=== PATIENT | female | born 1985 | race Caucasian/White ===

== ENCOUNTER 2016-12-30 18:07 | Emergency (ER) | payer MEDICAID, OTHER ==
[2016-12-30 18:26] VITALS: BP 104/63; PULSE 93; RESP 20; TEMP 98.4; O2SAT 100
[2016-12-30] MEDS ORDERED: Sodium Chloride 0.9% 1,000 ML IV STA (20:25)
[2016-12-30 21:09] LABS: BASO % 0.6 % (0.0-2.0); EOS # 0.2 K/uL (0.0-0.7); EOS % 2.4 % (0.0-4.0); HEMATOCRIT 37.8 % (34.0-47.0); LYMPH # 3.9 K/uL (1.0-4.3); LYMPH % 43.5 % (20.0-40.0); MEAN CELL VOLUME 94.2 fl (81.0-99.0); MEAN PLATELET VOLUME 9.1 fl (7.2-11.7); MONO # 0.6 K/uL (0.0-0.8); MONO % 6.3 % (0.0-10.0); NEUT # 4.2 K/uL (1.8-7.0); NEUT % 47.2 % (50.0-75.0); NRBC % 0.1 % (0.0-0.0); RED CELL DISTRIBUTION WIDTH 13.3 % (11.5-14.5)
[2016-12-30 21:28] LABS: ALB/GLOB RATIO 1.4 (1.0-2.1); ALKALINE PHOSPHATASE 60 U/L (38-126); ALT/SGPT 59 U/L (9-52); AST/SGOT 108 U/L (14-36); BILIRUBIN,TOTAL 2.1 mg/dl (0.2-1.3); BLOOD UREA NITROGEN 18 mg/dl (7-17); CALCIUM 9.2 mg/dL (8.4-10.2); CARBON DIOXIDE 24 mmol/L (22-30); CHLORIDE 104 mmol/L (98-107); GFR AFRICAN-AMERICAN > 60; GLUCOSE,RANDOM 95 mg/dL (65-105); LIPASE 172 U/L (23-300); SODIUM 136 mmol/l (132-148); TOTAL PROTEIN 8.7 G/DL (6.3-8.2)
--- NOTE | 2016-12-30 21:29 | ED PDOC ---
HPI: Abdomen Time Seen by Provider: 12/30/16 20:19 Chief Complaint (Nursing): Abdominal Pain Chief Complaint (Provider): Abdominal Pain History Per: Patient History/Exam Limitations: no limitations Onset/Duration Of Symptoms: Days (3 days) Outside of [place] travel?: No Current Symptoms Are (Timing): Still Present Severity: Moderate Location Of Pain/Discomfort: RLQ Associated Symptoms: denies: Fever, Nausea, Urinary Symptoms Additional Complaint(s): Margo Vicente is a 31 year old female, with no pertinent past medical history, who presents to the emergency department for the evaluation of abdominal pain, localized to the right lower quadrant, that the patient has been experiencing for the past 3 days. Patient was recently seen by Gaurav Tucker MD, who performed an ultrasound that came back inconclusive, and referred her to the emergency room for a CAT scan of her abdomen to rule out appendicitis. Denies a fever, nausea, or urinary symptoms. PMD: Gaurav Tucker Past Medical History Reviewed: Historical Data, Nursing Documentation, Vital Signs Vital Signs: Last Vital Signs Temp 98.4 F 12/30/16 18:23 Pulse 93 H 12/30/16 18:23 Resp 20 12/30/16 18:23 BP 104/63 12/30/16 18:23 Pulse Ox 100 12/30/16 21:33 - Medical History PMH: No Chronic Diseases Denies: Diabetes, HTN - Surgical History Surgical History: Tonsillectomy Other surgeries: Orthopedic R Hand Surgery - Family History Family History: States: Diabetes (Father) - Social History Current smoker - smoking cessation education provided: No Ex-Smoker (has not smoked in the last 12 months): No Alcohol: None Drugs: Cannabis - Home Medications Home Medications: Ambulatory Orders Medication Instructions Recorded Azithromycin [Zithromax] 250 mg PO DAILY #6 cap 04/13/14 Nitrofurantoin Macrocrystals 100 mg PO BID #10 cap 04/15/14 [Macrobid] Acetaminophen with Codeine 1 tab PO Q8H #10 tab 04/20/14 [Tylenol with Codeine No. 3 300 mg-30 mg] Sulfamethoxazole/Trimethopri 1 tab PO BID #14 tab 04/20/14 [Bactrim Ds 800 mg-160 mg] Tamsulosin [Flomax] 0.4 mg PO DAILY #0 cap 04/20/14 Dicyclomine [Bentyl] 10 mg PO QID PRN #10 cap 05/19/14 Metoclopramide Hydrochloride 10 mg PO Q4 PRN #10 tab 05/19/14 [Reglan] Albuterol HFA [Ventolin HFA 90 2 puff IH Q4H #1 puff 01/11/16 mcg/actuation (8 g)] Methylprednisolone [Medrol Dose 4 mg PO DAILY #21 tab 01/11/16 Pack (21 tabs)] Albuterol HFA [Ventolin HFA 90 2 puff IH Q4H #1 puff 03/15/16 mcg/actuation (8 g)] Azithromycin [Zithromax] 250 mg PO DAILY #6 tablet 03/15/16 Cyclobenzaprine [Cyclobenzaprine 10 mg PO BID #15 tab 12/30/16 HCl] Ibuprofen [Motrin Tab] 600 mg PO Q6 #30 tab 12/30/16 - Allergies Allergies/Adverse Reactions: Allergies Allergy/AdvReac Type Severity Reaction Status Date / Time No Known Allergies Allergy Verified 03/15/16 09:59 Review of Systems ROS Statement: Except As Marked, All Systems Reviewed And Found Negative Constitutional: Negative for: Fever Gastrointestinal: Positive for: Abdominal Pain (RLQ). Negative for: Nausea Genitourinary Female: Negative for: Dysuria, Frequency, Hematuria, Other ( urinary retention) Physical Exam - Reviewed Nursing Documentation Reviewed: Yes Vital Signs Reviewed: Yes - Physical Exam Appears: Positive for: Non-toxic, No Acute Distress Head Exam: Positive for: ATRAUMATIC, NORMOCEPHALIC Skin: Positive for: Normal Color, Warm Cardiovascular/Chest: Positive for: Regular Rate, Rhythm. Negative for: Murmur Respiratory: Positive for: Normal Breath Sounds. Negative for: Respiratory Distress Gastrointestinal/Abdominal: Positive for: Normal Exam, Bowel Sounds (nl), Soft, Tenderness (RLQ). Negative for: Mass, Distended, Guarding, Rebound Back: Positive for: Normal Inspection. Negative for: L CVA Tenderness, R CVA Tenderness Neurologic/Psych: Positive for: Alert, Oriented - Laboratory Results Result Diagrams: 12/30/16 21:00 12/30/16 21:00 - ECG O2 Sat by Pulse Oximetry: 100 (RA) Pulse Ox Interpretation: Normal Medical Decision Making Medical Decision Makin:19 Initial Impression: Possible appendicitis Initial Plan: * CT Abdomen & Pelvis w/ IV Contrast * Type and Screen * Complete Blood Count * Comprehensive Metabolic Panel * Lipase * Urine * Urinalysis * Morphine 2 mg IVP * Sodium Chloride 0.9% 1,000 ml IV at 500 mls/hr * Blood Culture * Urine Culture * Reevaluation 11PM CT: IMPRESSION: 17 mm involuting cyst within the left ovary. Retrocecal appendix is of normal caliber but with surrounding inflammatory change. Findings within the right iliacus muscle possibly secondary to contusion, an interval change from previous examination in 2013. Spoke with patient, states that she in fact had trauma to her abdomen last Monday when pain started, also states she fell down the stairs a few months ago and had trauma to the same area at that time and has been exerting herself at the gym and and at work. Told patient to try NSAIDs/muscle relaxants and to relax abdominal muscles. Told pt. to f/u w/ Dr. Tucker next week or return to ED for worsening pain, fevers, chills, or any other concerning symptoms. Scribe Attestation: Documented by Jonathan Corley, acting as a scribe for Martin Griffith MD. Provider Scribe Attestation: All medical record entries made by the Scribe were at my direction and personally dictated by me. I have reviewed the chart and agree that the record accurately reflects my personal performance of the history, physical exam, medical decision making, and the department course for this patient. I have also personally directed, reviewed, and agree with the discharge instructions and disposition. Disposition - Clinical Impression Clinical Impression: Muscle contusion, Abdominal pain - Patient ED Disposition Is Patient to be Admitted: No - Disposition Referrals: Gaurav Tucker MD [Family Provider] - Disposition: Routine/Home Disposition Time: 23:16 Condition: STABLE Prescriptions: Cyclobenzaprine [Cyclobenzaprine HCl] 10 mg PO BID #15 tab Ibuprofen [Motrin Tab] 600 mg PO Q6 #30 tab Instructions: Contusion in Adults (ED), Acute Abdominal Pain (ED)
[2016-12-30 21:49] LABS: POTASSIUM 6.2 MMOL/L (3.6-5.0)
[2016-12-30] MEDS ORDERED: Iohexol 300 100 ML IJ ONE (21:54)
[2016-12-30] MEDS ORDERED: Sodium Chloride 0.9% 50 ML IV ONE (21:54)
--- NOTE | 2016-12-30 22:45 | CT ---
EXAM: CT Abdomen and Pelvis With Intravenous Contrast CLINICAL HISTORY: 31 years old, female; Pain; Abdominal pain; Localized; Right lower quadrant (rlq); Patient HX: HX of kidney stones. Patient states: She was carrying a create, and run into a wall, and hit her rt side on sat. November; Additional info: Rlq pain, R/O appendicitis TECHNIQUE: Axial computed tomography images of the abdomen and pelvis with intravenous contrast. This CT exam was performed using one or more of the following dose reduction techniques: automated exposure control, adjustment of the mA and/or kV according to patient size, and/or use of iterative reconstruction technique. Coronal and sagittal reformatted images were created and reviewed. CONTRAST: 90 mL of [id number] administered intravenously. COMPARISON: CT - ABD PELVIS W/O PO OR IV CONT 04/20/2014 3:48:32 PM FINDINGS: Lower thorax: The bilateral lung bases are clear. ABDOMEN: Liver: No acute findings. Gallbladder and bile ducts: The gallbladder is decompressed. No calcified stones. No significant intra- or extrahepatic biliary ductal dilation. Pancreas: Enhances homogeneously. No ductal dilation. No discrete mass. Spleen: No acute findings. Adrenals: No acute findings. Kidneys and ureters: No acute findings. No hydronephrosis or renal calculi. No discrete solid mass. PELVIS: Bladder: No acute findings. Reproductive: A 17 mm involuting cyst is identified within the left ovary, with surrounding free fluid. The uterus is anteverted and anteflexed. Appendix: The retrocecal appendix is of normal caliber, but demonstrates adjacent inflammatory change, a nonspecific finding. The appendix is identified on series 3, images 100 through 122; series 601, images 40 through 55. ABDOMEN and PELVIS: Stomach and bowel: No obstruction. No mucosal thickening. Peritoneum: No significant fluid collection. No free air. Lymph nodes: No pathologically enlarged lymph nodes. Vasculature: Unremarkable. Bones: No acute fracture. 2 areas of decreased attenuation are identified within the right iliacus muscle, possibly secondary to contusion, an interval change from 2014 examination. IMPRESSION: 17 mm involuting cyst within the left ovary. Retrocecal appendix is of normal caliber but with surrounding inflammatory change. Findings within the right iliacus muscle possibly secondary to contusion, an interval change from previous examination in 2013.
[2016-12-30 23:06] LABS: ALB/GLOB RATIO 1.3 (1.0-2.1); ALKALINE PHOSPHATASE 53 U/L (38-126); ALT/SGPT 90 U/L (9-52); AST/SGOT 70 U/L (14-36); BILIRUBIN,TOTAL 0.1 mg/dl (0.2-1.3); BLOOD UREA NITROGEN 17 mg/dl (7-17); CALCIUM 8.4 mg/dL (8.4-10.2); CARBON DIOXIDE 25 mmol/L (22-30); CHLORIDE 106 mmol/L (98-107); GFR AFRICAN-AMERICAN > 60; GLUCOSE,RANDOM 92 mg/dL (65-105); POTASSIUM 3.8 MMOL/L (3.6-5.0); SODIUM 139 mmol/l (132-148); TOTAL PROTEIN 6.3 G/DL (6.3-8.2)
[2016-12-30 23:17] LABS: PH,URINE 6.5 (5.0-8.0); URINE BILIRUBIN NEGATIVE (NEGATIVE); URINE BLOOD NEGATIVE (NEGATIVE); URINE COLOR LT YELLOW (YELLOW); URINE GLUCOSE (UA) NEGATIVE (Normal); URINE KETONE TRACE mg/dL (NEGATIVE); URINE LEUKOCYTE ESTERASE NEGATIVE Leu/uL (Negative); URINE PROTEIN TRACE mg/dL (NEGATIVE)
[2016-12-30 23:18] LABS: RBC URINE 0 /hpf (0-3); URINE BACTERIA FEW (<OCC); WBC URINE 0 /hpf (0-5)
== END 2016-12-30 23:30 | disposition home or self-care (01) ==
LOC: H.ER 18:07
DX: S30.1XXA Contusion of abdominal wall, initial encounter (principal); R10.31 Right lower quadrant pain; Z87.442 Personal history of urinary calculi; Z87.891 Personal history of nicotine dependence; W10.9XXA Fall (on) (from) unspecified stairs and steps, initial encounter

== ENCOUNTER 2018-03-19 07:54 | Emergency (ER) | payer MEDICAID, OTHER ==
[2018-03-19 08:06] VITALS: O2SAT 100
[2018-03-19] MEDS ORDERED: Sodium Chloride 0.9% 1,000 ML IV STA (08:27)
--- NOTE | 2018-03-19 08:35 | ED PDOC ---
HPI: Abdomen Time Seen by Provider: 03/19/18 08:26 Chief Complaint (Nursing): Abdominal Pain Chief Complaint (Provider): Abdominal Pain History Per: Patient History/Exam Limitations: no limitations Onset/Duration Of Symptoms: Days (x1) Current Symptoms Are (Timing): Still Present Additional Complaint(s): 33-year-old female, with a past medical history of neuropathy and possible Chron s disease, presenting with right lower quadrant pain radiating to back associated with nausea and vomiting since this morning. Patient denies any fever or diarrhea. Patient reports chronic urinary symptoms, but denies any acute symptoms. PMD: Dr. Malou Abel Past Medical History Reviewed: Historical Data, Nursing Documentation, Vital Signs Vital Signs: Last Vital Signs Temp 97.3 F L 03/19/18 08:05 Pulse 88 03/19/18 08:05 Resp 20 03/19/18 08:05 BP 120/81 03/19/18 08:05 Pulse Ox 100 03/19/18 08:37 - Medical History PMH: Back Problems, Kidney Stones Denies: Diabetes, HTN Comment Only: Crohn's Disease (pt was tested for Crohns) Other PMH: Neuropathy - Surgical History Surgical History: Tonsillectomy - Family History Family History: States: Unknown Family Hx, Diabetes (Father) - Immunization History Hx Tetanus Toxoid Vaccination: No Hx Influenza Vaccination: No Hx Pneumococcal Vaccination: No - Home Medications Home Medications: Ambulatory Orders Medication Instructions Recorded Diclofenac Sodium [Voltaren] 50 mg PO BID #20 ect 02/01/18 Ciprofloxacin HCl [Cipro] 500 mg PO BID #20 tab 03/19/18 Tamsulosin [Flomax] 0.4 mg PO DAILY #5 cap 03/19/18 traMADol [Ultram] 50 mg PO Q8 #10 tab 03/19/18 - Allergies Allergies/Adverse Reactions: Allergies Allergy/AdvReac Type Severity Reaction Status Date / Time No Known Allergies Allergy Verified 03/19/18 08:06 Review of Systems ROS Statement: Except As Marked, All Systems Reviewed And Found Negative Constitutional: Negative for: Fever Gastrointestinal: Positive for: Nausea, Vomiting, Abdominal Pain. Negative for : Diarrhea Musculoskeletal: Positive for: Back Pain Physical Exam - Reviewed Nursing Documentation Reviewed: Yes Vital Signs Reviewed: Yes - Physical Exam Appears: Positive for: Non-toxic, No Acute Distress Head Exam: Positive for: ATRAUMATIC, NORMAL INSPECTION, NORMOCEPHALIC Skin: Positive for: Normal Color, Warm, Dry. Negative for: Rash Eye Exam: Positive for: EOMI, Normal appearance, PERRL Neck: Positive for: Normal, Painless ROM, Supple Cardiovascular/Chest: Positive for: Regular Rate, Rhythm. Negative for: Murmur Respiratory: Positive for: Normal Breath Sounds. Negative for: Respiratory Distress Gastrointestinal/Abdominal: Positive for: Soft, Tenderness (RLQ). Negative for : Rebound Back: Positive for: Normal Inspection. Negative for: L CVA Tenderness, R CVA Tenderness, Vertebral Tenderness Extremity: Positive for: Normal ROM. Negative for: Deformity Neurologic/Psych: Positive for: Alert, Oriented. Negative for: Motor/Sensory Deficits - Laboratory Results Result Diagrams: 03/19/18 08:38 03/19/18 08:38 - ECG O2 Sat by Pulse Oximetry: 100 (RA) Pulse Ox Interpretation: Normal - Progress Re-evaluation Time: 11:13 Condition: Improved Medical Decision Making Medical Decision Making: Plan: -CT Abdomen and pelvis -CMP -Urine -Urine dipstick -CBC -Morphine 2mg IVP -1LNS -Zofran 4mg IVP -Reevaluation Scribe Attestation: Documented by Martín Henao, acting as a scribe for Robb Li MD. Provider Scribe Attestation: All medical record entries made by the Scribe were at my direction and personally dictated by me. I have reviewed the chart and agree that the record accurately reflects my personal performance of the history, physical exam, medical decision making, and the department course for this patient. I have also personally directed, reviewed, and agree with the discharge instructions and disposition. Disposition - Clinical Impression Clinical Impression: Kidney stone - Patient ED Disposition Is Patient to be Admitted: No Counseled Patient/Family Regarding: Studies Performed, Diagnosis, Need For Followup, Rx Given - Disposition Referrals: Vanessa Broderick MD [Medical Doctor] - Disposition: Routine/Home Disposition Time: 11:14 Condition: FAIR Prescriptions: Ciprofloxacin HCl [Cipro] 500 mg PO BID #20 tab Tamsulosin [Flomax] 0.4 mg PO DAILY #5 cap traMADol [Ultram] 50 mg PO Q8 #10 tab Instructions: Kidney Stones in Adults Forms: [facility] (Chinese)
[2018-03-19 08:47] LABS: BASO % 0.2 % (0.0-2.0); EOS # 0.1 K/uL (0.0-0.7); EOS % 0.5 % (0.0-4.0); HEMOGLOBIN 13.8 g/dL (12.0-16.0); LYMPH # 2.1 K/uL (1.0-4.3); LYMPH % 15.6 % (20.0-40.0); MEAN CELL VOLUME 93.5 fl (81.0-99.0); MEAN CORPUSCULAR HEMOGLOBIN 32.1 pg (27.0-31.0); MEAN CORPUSCULAR HGB CONC 34.3 g/dL (33.0-37.0); MEAN PLATELET VOLUME 7.6 fl (7.2-11.7); MONO # 0.6 K/uL (0.0-0.8); MONO % 4.8 % (0.0-10.0); NEUT # 10.6 K/uL (1.8-7.0); NEUT % 78.9 % (50.0-75.0); NRBC % 0.1 % (0.0-0.0); RBC 4.3 Mil/uL (3.80-5.20); RED CELL DISTRIBUTION WIDTH 13.1 % (11.5-14.5); WHITE BLOOD COUNT 13.4 K/uL (4.8-10.8)
[2018-03-19 09:04] LABS: ALB/GLOB RATIO 1.5 (1.0-2.1); ALBUMIN 4.6 g/dL (3.5-5.0); ALT/SGPT 37 U/L (9-52); AST/SGOT 30 U/L (14-36); BLOOD UREA NITROGEN 11 mg/dl (7-17); CALCIUM 9.5 mg/dL (8.4-10.2); GFR AFRICAN-AMERICAN > 60; GFR NON-AFRICAN AMERICAN > 60
[2018-03-19] MEDS ORDERED: Sodium Chloride 0.9% 50 ML IV ONE (09:54)
[2018-03-19] MEDS ORDERED: Iohexol 300 100 ML IJ ONE (09:54)
--- NOTE | 2018-03-19 10:48 | CT ---
Date of service: 03/19/2018 PROCEDURE: CT Abdomen and Pelvis with contrast HISTORY: Abd pain COMPARISON: Abdomen pelvis CT examinations dated 12/30/2016 and 04/20/2014. TECHNIQUE: Contrast dose: Omnipaque 300, 95 cc Radiation dose: Total exam DLP = 522.00 mGy-cm. This CT exam was performed using one or more of the following dose reduction techniques: Automated exposure control, adjustment of the mA and/or kV according to patient size, and/or use of iterative reconstruction technique. FINDINGS: LOWER THORAX: Stable benign ovoid nodule is seen at the right middle lobe base measuring 5.5 mm greatest dimension once again. No additional lung base findings in the interval bilaterally. LIVER: There is a tiny lucency at the dome of the liver too small to characterize but likely stable in the interval. The remainder of the liver is unremarkable. GALLBLADDER AND BILE DUCTS: Unremarkable. PANCREAS: Unremarkable. No gross lesion or ductal dilatation. SPLEEN: Unremarkable. ADRENALS: Unremarkable. No mass. KIDNEYS AND URETERS: Mild right hydronephrosis identified with moderate right hydroureter caused by 3 mm calculus either the distal right ureter proximal to the ureterovesical junction or within the UV junction. Borderline delayed right nephrogram noted. No perinephric fluid collection appreciated though limited perinephric reaction is present. No left hydronephrosis. Punctate intrarenal calculi identified at the midpole right kidney swells at the lower pole and potentially though not definitively at the bilateral upper pole segments as well. VASCULATURE: Unremarkable. No aortic aneurysm. BOWEL: Evaluation of the gastrointestinal tract is limited due the lack of oral contrast administration. Large and small bowel do not appear obstructed and there is no perienteric or pericolic reactive change evident. A 1.3 cm lymph node is identified medial to the proximal ascending colon which appears nonspecific. No significant lymph node enlargement otherwise evident. There segments of large bowel which are collapsed and poorly evaluated. APPENDIX: Normal appendix. PERITONEUM: Unremarkable. No free fluid. No free air. BLADDER: Urinary bladder is collapsed. A punctate calculus is seen at or proximal the right ureter vessel junction as discussed in kidneys and ureter section above. REPRODUCTIVE: Unremarkable. BONES: No acute fracture. OTHER FINDINGS: None. IMPRESSION: 1. 3.0 mm calculus obstructs the distal right ureter or right uterus with junction causing mild right hydronephrosis and moderate right hydroureter. Additional punctate intrarenal calculi identified at the right kidney, potentially at the left minimally as well. No left-sided obstructive uropathy. 2. Limited evaluation of the bowel. No additional acute findings as discussed above. 3. Tiny lucency at the dome liver too small to characterize. 4. 5.5 mm stable benign nodule right middle lobe base incidentally noted.
[2018-03-19 12:12] VITALS: BP 106/70; PULSE 68; RESP 97; TEMP 98.7
== END 2018-03-19 12:10 | disposition home or self-care (01) ==
LOC: H.ER 07:54
DX: N20.0 Calculus of kidney (principal); K50.90 Crohn's disease, unspecified, without complications
CPT/HCPCS: 74177; 80053; 81025; 85025; 96361; 96374; 96375; 96376; 99283; J1885; J2270; J2405; J7030; Q9967

== ENCOUNTER 2018-05-29 11:16 | Emergency (ER) | payer MEDICAID ==
[2018-05-29 11:20] VITALS: PULSE 93; RESP 18; TEMP 98.3
[2018-05-29 12:32] LABS: BASO % 0.7 % (0.0-2.0); EOS # 0.2 K/uL (0.0-0.7); EOS % 2.7 % (0.0-4.0); HEMOGLOBIN 13.1 g/dL (12.0-16.0); LYMPH # 2.5 K/uL (1.0-4.3); LYMPH % 44.2 % (20.0-40.0); MEAN CELL VOLUME 94.2 fl (81.0-99.0); MEAN CORPUSCULAR HEMOGLOBIN 31.6 pg (27.0-31.0); MEAN CORPUSCULAR HGB CONC 33.6 g/dL (33.0-37.0); MEAN PLATELET VOLUME 7.7 fl (7.2-11.7); MONO # 0.6 K/uL (0.0-0.8); NEUT # 2.4 K/uL (1.8-7.0); NEUT % 42.4 % (50.0-75.0); NRBC % 0.3 % (0.0-0.0); RBC 4.15 Mil/uL (3.80-5.20); RED CELL DISTRIBUTION WIDTH 13.3 % (11.5-14.5); WHITE BLOOD COUNT 5.6 K/uL (4.8-10.8)
[2018-05-29 12:43] LABS: ALB/GLOB RATIO 1.2 (1.0-2.1); ALBUMIN 3.9 g/dL (3.5-5.0); ALT/SGPT 39 U/L (9-52); AST/SGOT 26 U/L (14-36); BLOOD UREA NITROGEN 10 mg/dl (7-17); CALCIUM 9.1 mg/dL (8.4-10.2); GFR NON-AFRICAN AMERICAN > 60
--- NOTE | 2018-05-29 12:49 | RAD ---
Date of service: 05/29/2018 HISTORY: shortness of breath, cough, hemoptysis COMPARISON: Chest radiograph dated 03/15/2016. TECHNIQUE: Chest PA and lateral FINDINGS: LUNGS: No active pulmonary disease. PLEURA: No significant pleural effusion identified. No pneumothorax apparent. CARDIOVASCULAR: No aortic atherosclerotic calcification present. Normal cardiac size. No pulmonary vascular congestion. OSSEOUS STRUCTURES: No significant abnormalities. VISUALIZED UPPER ABDOMEN: Normal. OTHER FINDINGS: None. IMPRESSION: No active disease.
--- NOTE | 2018-05-29 13:47 | ED PDOC ---
History of Present Illness History of Present Illness: 33 y/o F with hx of chronic diarrhea/possible Crohn's disease who presents with c/o cough and nasal congestion for the past several days. She saw her PMD yesterday who prescribed a Z-pack and cough medication. She has continued to have productive cough of yellowish sputum, worse at night but comes into ED today b/c of episode of blood in her sputum this morning. Denies fever, chills, chest pain, SOB, sick contacts. 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 Admits to [facility] hx of lung dz. HPI: Influenza Time Seen by Provider: 05/29/18 11:47 Chief Complaint: Cough, Cold, Congestion Chief Complaint (Provider): blood in sputum History Per: Patient Exam Limitations: no limitations Onset/Duration Of Symptoms: Hrs Symptoms include: cough, nasal congestion Sick Contacts (Context): Family Member(s) (son who gave URI to patient) Hx Influenza Vaccination: No Past Medical History Reviewed: Historical Data, Nursing Documentation, Vital Signs Vital Signs: Last Vital Signs Temp 98.3 F 05/29/18 11:18 Pulse 93 H 05/29/18 11:18 Resp 18 05/29/18 11:18 BP 113/74 05/29/18 11:18 Pulse Ox 98 05/29/18 11:18 - Medical History PMH: Back Problems, Crohn's Disease (pt was tested for Crohns), Kidney Stones Denies: Diabetes, HTN - Surgical History Surgical History: No Surg Hx, Tonsillectomy - Family History Family History: States: Unknown Family Hx, Diabetes (Father) - Living Arrangements Living Arrangements: With Family - Social History Current smoker - smoking cessation education provided: No Ex-Smoker (has not smoked in the last 12 months): No Alcohol: Social Drugs: Denies - Immunization History Hx Tetanus Toxoid Vaccination: No Hx Influenza Vaccination: No Hx Pneumococcal Vaccination: No - Home Medications Home Medications: Ambulatory Orders Medication Instructions Recorded Diclofenac Sodium [Voltaren] 50 mg PO BID #20 ect 02/01/18 Ciprofloxacin HCl [Cipro] 500 mg PO BID #20 tab 03/19/18 Tamsulosin [Flomax] 0.4 mg PO DAILY #5 cap 03/19/18 traMADol [Ultram] 50 mg PO Q8 #10 tab 03/19/18 - Allergies Allergies/Adverse Reactions: Allergies Allergy/AdvReac Type Severity Reaction Status Date / Time No Known Allergies Allergy Verified 05/29/18 11:30 Review of Systems ROS Statement: Except As Marked, All Systems Reviewed And Found Negative ENT: Positive for: Nose Congestion Respiratory: Positive for: Cough, Hemoptysis, Sputum Physical Exam - Reviewed Nursing Documentation Reviewed: Yes Vital Signs Reviewed: Yes - Physical Exam Appears: Positive for: Well Head Exam: Positive for: ATRAUMATIC Skin: Positive for: Normal Color Eye Exam: Positive for: Normal appearance ENT: Positive for: Normal ENT Inspection, Pharynx Is (w/o evidence of dried blood, erythema, exudates) Neck: Positive for: Normal Cardiovascular/Chest: Positive for: Regular Rate, Rhythm Respiratory: Positive for: Normal Breath Sounds Gastrointestinal/Abdominal: Positive for: Normal Exam Lymphatic: Positive for: Normal Exam Neurologic/Psych: Positive for: Alert, Oriented Medical Decision Making Medical Decision Making: CXR CBC CMP urine preg CBC and CMP wnl CXR shows no active disease. The risk and benefits of Chest CTA offered to the patient given rare event that hemoptysis could be due to possible AVM in the lungs. She states that she does not feel that she needs this test at this time. She will return if she continues to have more episodes of hemoptysis. She was given a referral to a director metabolism if episodes persist or to return to ER. She was also advised to see her PMD for PPD placement. - Laboratory Results Result Diagrams: 05/29/18 12:25 05/29/18 12:25 - ECG O2 Sat by Pulse Oximetry: 98 Disposition - Clinical Impression Clinical Impression: Bronchitis, Hemoptysis, unspecified - Patient ED Disposition Is Patient to be Admitted: No Counseled Patient/Family Regarding: Studies Performed, Diagnosis, Need For Followup - Disposition Referrals: Kenneth Bautista MD [Staff Provider] - Disposition: Routine/Home Disposition Time: 14:05 Condition: STABLE Additional Instructions: You should f/u with your primary care doctor to have PPD placed to evaluate for Tuberculosis exposure. IF you continue to have episodes of blood in your sputum, you have been given a referral to a director metabolism or return to ER for further evaluation. Please finish the course of antibiotics provided to you by your Primary care doctor. Instructions: Acute Bronchitis, Adult (DC), Coughing up Blood Forms: [facility] ([place]ican) Print Language: [id number]
[2018-05-29 14:07] VITALS: BP 122/73
[2018-05-29 21:09] VITALS: O2SAT 98
== END 2018-05-29 14:22 | disposition home or self-care (01) ==
LOC: H.ER 11:16
DX: J40 Bronchitis, not specified as acute or chronic (principal); R04.2 Hemoptysis; K50.90 Crohn's disease, unspecified, without complications